=== PATIENT | female | born 1935 | race Caucasian/White ===

== ENCOUNTER 2024-05-16 19:45 | Inpatient (IN) | payer MEDICARE, SELFPAY ==
[2024-05-16] MEDS ORDERED: Acetaminophen 325 MG TAB PO PRN (20:43)
[2024-05-16] MEDS ORDERED: Acetaminophen 650 MG Suppository PR PRN (20:43)
[2024-05-16] MEDS ORDERED: Glucagon 1 MG/ML KIT IM PRN (20:43)
[2024-05-16] MEDS ORDERED: Insulin Lispro 100 UNIT/ML 10 ML VIAL SC PRN (20:43)
[2024-05-16] MEDS ORDERED: Bisacodyl 5 MG TAB PO PRN (20:43)
[2024-05-16] MEDS ORDERED: Dextrose 50% Abboject 50 ML SYRINGE SLOW IVP PRN (20:43)
[2024-05-16] MEDS ORDERED: Dextrose 5% in Water 1,000 ML IV PRN (20:43)
[2024-05-16] MEDS ORDERED: Ondansetron ODT 4 MG TAB PO PRN (20:43)
[2024-05-16] MEDS ORDERED: Ondansetron PF 4 MG/2 ML Vial IVP PRN (20:43)
[2024-05-16] MEDS ORDERED: Senokot S 8.6-50 MG TAB PO PRN (20:43)
[2024-05-16] MEDS ORDERED: Nitroglycerin 0.4 MG TAB (25 Tab Bottle) SL PRN (21:01)
[2024-05-16 21:46] VITALS: BMI 18.3
[2024-05-16 21:58] LABS: Troponin I 0.047 ng/mL (< 0.028)
[2024-05-17] MEDS: Amiodarone 450 MG in Dextrose 5% in Water 250 ML IVPB SCH (00:46)
[2024-05-17] MEDS: Melatonin 3 MG TAB PO PRN (00:47)
[2024-05-17 01:36] LABS: Troponin I 0.036 ng/mL (< 0.028)
[2024-05-17] MEDS: cefTRIAXone\\ROCEPHIN 1 GM in Sodium Chloride 0.9% 100 ML IVPB SCH (04:36)
[2024-05-17 04:59] LABS: #Basophils 0.04 10x3/uL (0.0-0.2); %Basophils 0.5 % (0.0-1.0); %Eosinophils 2.6 % (0.0-10.0); %Lymphocytes 19.8 % (21.0-51.0); %Monocytes 10.3 % (0.0-10.0); %Neutrophils 66.4 % (42.0-75.0); Hematocrit 35.5 % (36.0-47.0); Hemoglobin 11.4 g/dL (12.0-16.0); Mean Corpuscular HGB CONC 32.1 g/dL (32.0-36.0); Mean Corpuscular Hemoglobin 29.8 pg (27.0-31.0); Mean Corpuscular Volume 92.9 fL (78.0-98.0); Mean Platelet Volume 11.3 fL (7.4-10.4); Platelet Count 173 10x3/uL (130-400); RBC Distribution Width 13.4 % (11.5-14.5); Red Blood Cell (RBC) Count 3.82 mill/uL (4.20-5.40)
[2024-05-17 05:20] LABS: Hemoglobin A1c 6.1 % (4.0-6.0)
[2024-05-17 05:28] LABS: Anion Gap 13 mmol/L (10-20); BUN (Urea Nitrogen) 21 mg/dL (9.8-20.1); Calc. Creatinine Clearance 32 mL/min (70-130); Calcium 8.4 mg/dL (7.8-10.44); Carbon Dioxide 21 mmol/L (23-31); Cardiac Risk 3.9 (Less than 4.5); Chloride 110 mmol/L (98-107); Cholesterol 128 mg/dl (< 200 Desired); Estimated GFR 58; Glucose 140 mg/dL (83-110); HDL Cholesterol 33 mg/dL (>60 Neg Risk); LDL Cholesterol, Calculated 75 mg/dL; Magnesium 1.9 mg/dL (1.6-2.6); Potassium 3.8 mmol/L (3.5-5.1); Sodium 140 mmol/L (136-145); Triglycerides 99 mg/dL (Less than 150)
[2024-05-17] MEDS: Enoxaparin 80 MG (0.8 mL) SYRINGE SC SCH (06:14)
[2024-05-17] MEDS: Magnesium 2 GM/50 ML(in water) 2 GM in Premix 1 BAG IVPB SCH (06:14)
[2024-05-17] MEDS: Famotidine 20 MG TAB PO SCH (08:04)
[2024-05-17] MEDS: Aspirin 81 mg Enteric Coated Tablet PO SCH (08:04)
[2024-05-17] MEDS: Aspirin Chewable 81 MG TAB PO SCH (08:04)
[2024-05-17 10:11] VITALS: BMI 18.3
[2024-05-17] MEDS: Insulin Lispro 100 UNIT/ML 10 ML VIAL SC PRN (12:05)
[2024-05-17] MEDS: Carvedilol 6.25 MG TAB PO SCH (15:13)
[2024-05-17] MEDS: Enoxaparin 60 MG (0.6 mL) SYRINGE SC SCH (17:49)
[2024-05-17] MEDS: Amiodarone 200 MG TAB PO SCH (20:36)
[2024-05-17] MEDS: Atorvastatin Calcium 40 MG TAB PO SCH (20:36)
[2024-05-18 04:46] LABS: Magnesium 1.9 mg/dL (1.6-2.6)
[2024-05-18] MEDS: Folic Acid 1 MG TAB PO SCH (08:25)
[2024-05-18] MEDS: AMOXicillin 250 MG CAP PO SCH (16:16)
[2024-05-19 04:35] LABS: Anion Gap 12 mmol/L (10-20); BUN (Urea Nitrogen) 19 mg/dL (9.8-20.1); Calc. Creatinine Clearance 34 mL/min (70-130); Calcium 8.7 mg/dL (7.8-10.44); Carbon Dioxide 22 mmol/L (23-31); Chloride 107 mmol/L (98-107); Estimated GFR 62; Glucose 126 mg/dL (83-110); Magnesium 1.8 mg/dL (1.6-2.6); Potassium 4.2 mmol/L (3.5-5.1); Sodium 137 mmol/L (136-145)
[2024-05-19] MEDS: Lidocaine 4% Patch TD SCH (10:45)
[2024-05-19 16:12] VITALS: TEMP 98.2
[2024-05-19 17:32] VITALS: BP 161/85
[2024-05-19] MEDS ORDERED: Transdermal Patch Removal TOP SCH (21:00)
[2024-05-20] MEDS ORDERED: Lidocaine 4% Patch TD SCH (09:00)
[2024-05-28] MEDS ORDERED: Amiodarone 200 MG TAB PO SCH (09:00)
== END 2024-05-19 18:39 | disposition home health service (06) | DRG 281 ==
LOC: PCU 19:45
PROVIDERS: ADMIT Internal Medicine; ATTEND Family Medicine
DX: I48.91 Unspecified atrial fibrillation (principal); N17.9 Acute kidney failure, unspecified; I21.A1 Myocardial infarction type 2; N39.0 Urinary tract infection, site not specified; R73.9 Hyperglycemia, unspecified; Z66 Do not resuscitate; Z79.01 Long term (current) use of anticoagulants; Z79.899 Other long term (current) drug therapy; N18.9 Chronic kidney disease, unspecified; Z79.4 Long term (current) use of insulin; Z79.82 Long term (current) use of aspirin; Z96.652 Presence of left artificial knee joint; I44.0 Atrioventricular block, first degree
CPT/HCPCS: 36415; 36416; 80048; 80061; 83036; 83735; 84443; 84484; 85025; 93005; 93010; 93306; 94760; J0282; J0696; J1650; J1815; J3475; J7070